=== PATIENT | male | born 1990 | race Caucasian/White ===

== ENCOUNTER 2017-06-14 18:43 | Emergency (ER) | payer MEDICAID ==
[~2017-06-14] VITALS: Ht 170.2 cm; Wt 65.8 kg
[2017-06-14 18:45] VITALS: BP_SYST 158
[2017-06-14] MEDS ORDERED: KETOROLAC TROMETHAMINE 60 MG/2 ML VIAL IM ONE ×2 (19:15→21:18)
[2017-06-14] MEDS ORDERED: HYDROcodone/ACETAMIN 7.5-325 MG TAB PO ONE (20:15)
[2017-06-14 21:35] VITALS: BP_SYST 146
== END 2017-06-14 21:35 | disposition home or self-care (01) ==
LOC: SED 18:43
DX: K08.89 Other specified disorders of teeth and supporting structures (principal); R03.0 Elevated blood-pressure reading, without diagnosis of hypertension
CPT/HCPCS: 96372; 99283; J1885